=== PATIENT | female | born 1975 | race Hispanic/Latino ===

== ENCOUNTER 2017-08-29 22:17 | Emergency (ER) | payer MEDICAID ==
[2017-08-29 22:17] VITALS: BMI 21.5
[2017-08-29 22:21] VITALS: BP 136/91; PULSE 98; RESP 20; TEMP 97.6; O2SAT 96
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
== END 2017-08-30 00:31 | disposition home or self-care (01) ==
LOC: H.ER 22:17
DX: F41.9 Anxiety disorder, unspecified (principal); F20.9 Schizophrenia, unspecified; F32.9 Major depressive disorder, single episode, unspecified; J45.909 Unspecified asthma, uncomplicated

== ENCOUNTER 2017-11-17 07:40 | Emergency (ER) | payer MEDICAID ==
[2017-11-17 07:40] VITALS: BMI 21.5
[2017-11-17 07:56] VITALS: BP 124/86; PULSE 71; RESP 16; TEMP 98.1; O2SAT 100
[2017-11-17] MEDS ORDERED: Sodium Chloride 0.9% 1,000 ML IV STA (08:07)
[2017-11-17 08:28] LABS: SQUAMOUS EPITHIAL 1 /hpf (0-5); URINE BILIRUBIN NEGATIVE (NEGATIVE); URINE BLOOD MODERATE (NEGATIVE); URINE CLARITY SLIGHTY-CLOUDY (Clear); URINE COLOR YELLOW (YELLOW); URINE GLUCOSE (UA) NEG (Normal); URINE LEUKOCYTE ESTERASE NEG Leu/uL (Negative); URINE PROTEIN NEGATIVE (NEGATIVE); URINE UROBILINOGEN 0.2-1.0 mg/dL (0.2-1.0)
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
[2017-11-17 08:42] LABS: ALB/GLOB RATIO 1.1 (1.0-2.1); ALT/SGPT 30 U/L (9-52); AST/SGOT 25 U/L (14-36); BASO % 0.2 % (0.0-2.0); BLOOD UREA NITROGEN 14 mg/dl (7-17); CALCIUM 9.2 mg/dL (8.4-10.2); EOS # 0.2 K/uL (0.0-0.7); EOS % 2.2 % (0.0-4.0); GFR AFRICAN-AMERICAN > 60; GFR NON-AFRICAN AMERICAN > 60; LYMPH # 0.8 K/uL (1.0-4.3); LYMPH % 10.8 % (20.0-40.0); MEAN CELL VOLUME 92.1 fl (81.0-99.0); MEAN CORPUSCULAR HEMOGLOBIN 30.2 pg (27.0-31.0); MEAN CORPUSCULAR HGB CONC 32.8 g/dL (33.0-37.0); MEAN PLATELET VOLUME 12.2 fl (7.2-11.7); MONO # 0.9 K/uL (0.0-0.8); MONO % 12.9 % (0.0-10.0); NEUT # 5.4 K/uL (1.8-7.0); NEUT % 73.9 % (50.0-75.0); RBC 3.98 Mil/uL (3.80-5.20); RED CELL DISTRIBUTION WIDTH 14.5 % (11.5-14.5); WHITE BLOOD COUNT 7.3 K/uL (4.8-10.8)
--- NOTE | 2017-11-17 09:12 | CT ---
PROCEDURE: CT Abdomen and Pelvis without intravenous contrast HISTORY: acute severe left flank pain COMPARISON: 08/03/2014 TECHNIQUE: Without contrast. Contrast Dose: Radiation dose: Total exam DLP = Total exam DLP = 798 mGy-cm. This CT exam was performed using one or more of the following dose reduction techniques: Automated exposure control, adjustment of the mA and/or kV according to patient size, and/or use of iterative reconstruction technique. FINDINGS: LOWER THORAX: Posterior dependent atelectatic hypoventilatory changes noted LIVER: Unremarkable. No gross lesion or ductal dilatation. GALLBLADDER AND BILE DUCTS: Unremarkable. PANCREAS: Unremarkable. No gross lesion or ductal dilatation. SPLEEN: Unremarkable. ADRENALS: Unremarkable. No mass. KIDNEYS AND URETERS: Unremarkable. No hydronephrosis. The left ureter has some mild intermittent dilatation to it that is similar to the prior appearance no interval increasing caliber seen. No obstructing source identified. The segmental left ureteral "Fullness "are is not a continuous common of prominence. VASCULATURE: Bilateral hemipelvic calcifications left hemipelvic phleboliths -similar. Either right hemipelvic phleboliths and/or tiny dystrophic calcification relating to the right ovary noted- similar in appearance no distal ureteral calculi noted. No aortic aneurysm. BOWEL: Moderate stool retention No obstruction. No gross mural thickening. APPENDIX: Unremarkable. Normal appendix. PERITONEUM: Unremarkable. No free fluid. No free air. LYMPH NODES: Unremarkable. No enlarged lymph nodes. BLADDER: Unremarkable. REPRODUCTIVE: The right ovary simulates a prominent follicular cyst formation. This appearance however is similar dating back to 2013. The left ovary is higher in position appears unremarkable. Pelvic ultrasound more sensitive for CASE MANAGER SPECIALIST assessment. BONES: No acute fracture. L5-S1 disc space narrowing with endplate spondylosis. Thoraco lumbar level spondylosis also noted. OTHER FINDINGS: None. IMPRESSION: No urolithiasis seen. No hydronephrosis. No persisting hydroureter. The left ureter is segmentally minimally full but this appearance is not continuous and not changed since 2013. No distal obstructing calculus suggested Nonspecific a CASE MANAGER SPECIALIST findings as above. Consider pelvic ultrasound
== END 2017-11-17 10:47 | disposition home or self-care (01) ==
LOC: H.ER 07:40
DX: M54.9 Dorsalgia, unspecified (principal); Z86.59 Personal history of other mental and behavioral disorders; J45.909 Unspecified asthma, uncomplicated
CPT/HCPCS: 74176; 80053; 81003; 81025; 85025; 96361; 96374; 96375; 99283; J1885; J2765; J7040

== ENCOUNTER 2017-11-17 21:36 | Emergency (ER) | payer MEDICAID ==
[2017-11-17 21:36] VITALS: BMI 21.5
[2017-11-17 21:45] VITALS: BP 118/72; O2SAT 100
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
[2017-11-17 23:22] VITALS: TEMP 98.8
[2017-11-17 23:23] VITALS: PULSE 98
[2017-11-17 23:28] LABS: B-TYPE NATRIURETIC PEPTIDE 56.1 pg/ml (0-450)
[2017-11-17 23:32] VITALS: RESP 18
--- NOTE | 2017-11-18 09:23 | RAD ---
HISTORY: sob COMPARISON: Comparison chest dated 07/03/2013 TECHNIQUE: Chest PA and lateral FINDINGS: LUNGS: Minor bibasilar atelectasis. PLEURA: No significant pleural effusion identified. No pneumothorax apparent. CARDIOVASCULAR: Normal. OSSEOUS STRUCTURES: No significant abnormalities. VISUALIZED UPPER ABDOMEN: Normal. OTHER FINDINGS: None. IMPRESSION: Minor bibasilar atelectasis.
== END 2017-11-17 23:42 | disposition home or self-care (01) ==
LOC: H.ER 21:36
DX: B34.9 Viral infection, unspecified (principal); F41.9 Anxiety disorder, unspecified; J44.9 Chronic obstructive pulmonary disease, unspecified; Z86.59 Personal history of other mental and behavioral disorders
CPT/HCPCS: 71046; 81025; 83880; 84484; 87070; 87430; 87804; 96374; 99284; J2930

== ENCOUNTER 2018-09-16 13:10 | Inpatient (IN) | payer MEDICAID ==
[2018-09-16 13:11] VITALS: BMI 21.5
[2018-09-16 13:17] VITALS: O2SAT 98
--- NOTE | 2018-09-16 14:29 | ED PDOC ---
HPI: Psych/Substance Abuse Time Seen by Provider: 09/16/18 13:35 Chief Complaint (Nursing): Psychiatric Evaluation Chief Complaint (Provider): Psychiatric Evaluation History Per: Patient History/Exam Limitations: no limitations Onset/Duration Of Symptoms: Hrs Current Symptoms Are (Timing): Still Present Associated Symptoms: Depression. denies: Suicidal Thoughts, Suicidal Plan Additional Complaint(s): Jyothi Gomez is a 43 year old female with a past medical history of schizophrenia, depression, and asthma who is presenting to the ED for psyc hiatric evaluation after having a panic attack s/p argument with today. Patient states that she recently noted that her has been talking on the phone with another female and thinks he is cheating on her. She admits that she has been feeling depressed and is crying frequently over the past few days but is unsure why. Patient also states that she has not taken any medications for the past 3 months as she ran out and has not seen a psychiatrist. She currently denies any suicidal/homicidal ideation as well as auditory or visual hallucinations. Patient admits to a history of suicide attempts several years ago when she tried to hang herself with sheets. She states that at the time she was hospitalized for 6 months at [facility] in [place]. At the moment patient is strongly denying any suicidal ideation or plan. Patients only medical complaint is nasal congestion and denies any fevers, chills, or sore throat. PMD: none provided Past Medical History Reviewed: Historical Data, Nursing Documentation, Vital Signs Vital Signs: Last Vital Signs Temp 98.0 F 09/16/18 13:16 Pulse 117 H 09/16/18 13:16 Resp 20 09/16/18 13:16 BP 143/94 H 09/16/18 13:16 Pulse Ox 98 09/16/18 13:16 - Medical History PMH: Anxiety, Asthma, Back Problems (chronic - patient takes percocets from Dr. Encarnacion ), Depression Denies: Diabetes, Hepatitis, HIV, HTN, Seizures, Sexually Transmitted Disease - Surgical History Surgical History: Hernia Repair - Family History Family History: States: Unknown Family Hx - Social History Current smoker - smoking cessation education provided: No Alcohol: None Drugs: Denies - Immunization History Hx Tetanus Toxoid Vaccination: No Hx Influenza Vaccination: Yes Hx Pneumococcal Vaccination: No - Home Medications Home Medications: Ambulatory Orders Medication Instructions Recorded Acetaminophen/Oxycodone Hydr 1 tab PO Q6H PRN 02/17/15 [Percocet 10/325 mg Tab] Albuterol Sulfate [Ventolin Hfa] 2 puff IH Q6 PRN 09/16/18 Alprazolam [Xanax] 2 mg PO Q8 09/16/18 Ergocalciferol (Vitamin D2) 50,000 unit PO QWK 09/16/18 [Vitamin D2] Montelukast [Singulair] 10 mg PO HS 09/16/18 Omeprazole 20 mg PO DAILY 09/16/18 RX: cloNIDine [Catapres] 0.1 mg PO Q12 09/16/18 RX: predniSONE [predniSONE Tab] 10 mg PO DAILY 09/16/18 Simvastatin 10 mg PO HS 09/16/18 Zolpidem [Ambien] 10 mg PO HS 09/16/18 - Allergies Allergies/Adverse Reactions: Allergies Allergy/AdvReac Type Severity Reaction Status Date / Time aspirin Allergy ITCHING Verified 09/16/18 19:16 Review of Systems ROS Statement: Except As Marked, All Systems Reviewed And Found Negative Constitutional: Negative for: Fever, Chills ENT: Positive for: Nose Congestion. Negative for: Throat Pain Psych: Positive for: Depression. Negative for: Suicidal ideation, Other (no homicidal ideation, auditory or visual hallucinations ) Physical Exam - Reviewed Nursing Documentation Reviewed: Yes Vital Signs Reviewed: Yes - Physical Exam Appears: Positive for: Non-toxic, No Acute Distress (but tearful and crying during exam ) Head Exam: Positive for: ATRAUMATIC, NORMAL INSPECTION, NORMOCEPHALIC Skin: Positive for: Normal Color, Warm, DRY Eye Exam: Positive for: Normal appearance, EOMI, PERRL, Conjunctival injection (bilateral) ENT: Positive for: Nasal Congestion Neck: Positive for: Normal, Painless ROM Cardiovascular/Chest: Positive for: Regular Rate, Rhythm. Negative for: Murmur Respiratory: Positive for: Normal Breath Sounds. Negative for: Respiratory Distress Gastrointestinal/Abdominal: Positive for: Normal Exam, Soft. Negative for: Tenderness Back: Positive for: Normal Inspection Extremity: Positive for: Normal ROM. Negative for: Deformity, Swelling Neurologic/Psych: Positive for: Alert, Oriented, Mood/Affect (flat affect). Negative for: Motor/Sensory Deficits - Laboratory Results Result Diagrams: 09/16/18 14:30 09/16/18 14:30 - ECG O2 Sat by Pulse Oximetry: 98 (RA) Pulse Ox Interpretation: Normal Medical Decision Making Medical Decision Making: Time: 14:18 Plan: --EKG --CMP --Drug Screen --Crisis Evaluation --ED Urine --CBC --Chest X-ray --Urinalysis EKG: sinus rhythm at 85 bpm. nonspecific T waves in anterior leads 15:50 Chest x-ray read by provider unremarkable no acute pulmonary process. urine drug screen positive for cocaine. labs unremarkable. Patient is medically clear for psych admission. Scribe Attestation: Documented by, Gwen Payton acting as a scribe for Amna Park PA-C. Provider Scribe Attestation: All medical record entries made by the Scribe were at my direction and personally dictated by me. I have reviewed the chart and agree that the record accurately reflects my personal performance of the history, physical exam, m edical decision making, and the department course for this patient. I have also personally directed, reviewed, and agree with the discharge instructions and disposition. Disposition - Clinical Impression Clinical Impression: Depression - Patient ED Disposition Is Patient to be Admitted: Yes Discussed With : Drea Burciaga - Disposition Disposition: Transfer of Care Disposition Time: 15:55 Condition: FAIR
[2018-09-16 15:16] LABS: BASO % 0.6 % (0.0-2.0); EOS # 0.2 K/uL (0.0-0.7); EOS % 3.3 % (0.0-4.0); HEMOGLOBIN 11.2 g/dL (12.0-16.0); LYMPH # 1.7 K/uL (1.0-4.3); LYMPH % 29.4 % (20.0-40.0); MEAN CELL VOLUME 91.7 fl (81.0-99.0); MEAN CORPUSCULAR HEMOGLOBIN 30.4 pg (27.0-31.0); MEAN CORPUSCULAR HGB CONC 33.2 g/dL (33.0-37.0); MEAN PLATELET VOLUME 11.7 fl (7.2-11.7); MONO # 0.6 K/uL (0.0-0.8); MONO % 10.1 % (0.0-10.0); NEUT # 3.3 K/uL (1.8-7.0); NEUT % 56.6 % (50.0-75.0); RBC 3.68 Mil/uL (3.80-5.20); RED CELL DISTRIBUTION WIDTH 14.5 % (11.5-14.5); WHITE BLOOD COUNT 5.8 K/uL (4.8-10.8)
[2018-09-16 15:23] LABS: ALB/GLOB RATIO 1.1 (1.0-2.1); ALBUMIN 3.9 g/dL (3.5-5.0); ALT/SGPT 26 U/L (9-52); AST/SGOT 17 U/L (14-36); BLOOD UREA NITROGEN 9 mg/dl (7-17); CALCIUM 8.8 mg/dL (8.4-10.2); GFR NON-AFRICAN AMERICAN 60
[2018-09-16 15:33] LABS: BARBITURATES, UR NEGATIVE (NEGATIVE); BENZODIAZEPINES, UR NEGATIVE (NEGATIVE); OPIATES, UR NEGATIVE (NEGATIVE); PHENCYCLIDINE, UR NEGATIVE (NEGATIVE)
[2018-09-16 15:41] LABS: SQUAMOUS EPITHIAL 8 /hpf (0-5); URINE BACTERIA OCC (<OCC); URINE BILIRUBIN NEGATIVE (NEGATIVE); URINE BLOOD MODERATE (NEGATIVE); URINE CLARITY SLIGHTY-CLOUDY (Clear); URINE COLOR YELLOW (YELLOW); URINE GLUCOSE (UA) NEG (NEGATIVE); URINE LEUKOCYTE ESTERASE NEG Leu/uL (Negative); URINE PROTEIN NEGATIVE (NEGATIVE); URINE UROBILINOGEN 0.2-1.0 mg/dL (0.2-1.0)
--- NOTE | 2018-09-16 15:55 | RAD ---
Date of service: 09/16/2018 HISTORY: baseline COMPARISON: Chest radiographs 11/17/2017. FINDINGS: LUNGS: Overall inspiratory volume appears somewhat diminished in the interval. No acute infiltrate bilaterally. PLEURA: No significant pleural effusion identified, no pneumothorax apparent. CARDIOVASCULAR: No aortic atherosclerotic calcification present. Normal cardiac size. No pulmonary vascular congestion. OSSEOUS STRUCTURES: No significant abnormalities. VISUALIZED UPPER ABDOMEN: Normal. OTHER FINDINGS: None. IMPRESSION: No acute infiltrate, pleural effusion or pulmonary vascular congestion bilaterally. No pneumothorax. Inspiratory volume appears diminished in the interval somewhat.
--- NOTE | 2018-09-16 17:25 | PCM.BM ---
Treatment Plan Problems - Problems identified on initial assessmt Anxiety Date Initiated: 09/16/18 Time Initiated: 17:23 Assessment reference: NA Status: Active Feelings of Worthlessness Date Initiated: 09/16/18 Time Initiated: 17:24 Assessment reference: NA Status: Active Nutrition More than Body Requirements Date Initiated: 09/16/18 Time Initiated: 17:26 Assessment reference: NA Status: Active Altered Sleep Patterns Date Initiated: 09/16/18 Time Initiated: 17:27 Assessment reference: NA Status: Active Treatment assets and liabiliti Patient Assests: cooperative, ADL independent Patient Liabilities: relationship conflicts - Milieu Protocol Maintain good personal hygiene: daily Encourage regular showers, daily Remind patient to perform daily oral care, daily Assist patient to perform ADL's Maintain personal safety: every shift Educate patient to report safety concerns to staff, every shift Monitor environment for contraband/sharps Medication safety: Monitor for expected outcome, potential side effects: every shift, Assess barriers to learning: every shift, Assess readiness for medication education: every shift
[2018-09-16] MEDS ORDERED: Alum-Mag Hydrox-Simethicone Susp (30 mL) PO PRN (17:48)
[2018-09-16] MEDS ORDERED: Magnesium Hydroxide Susp 30 ml UD PO PRN (17:48)
[2018-09-16] MEDS ORDERED: DiphenhydrAMINE 50 mg/ml Inj IM PRN (18:10)
--- NOTE | 2018-09-16 18:32 | CARD ---
APPROVED REPORT Date of service: 09/16/2018 EKG Measurement Heart [id number] ID [id number] <Conclusion> Normal sinus rhythm Possible Left atrial enlargement Borderline ECG
[2018-09-17 10:37] LABS: BASO % 0.5 % (0.0-2.0); EOS # 0.3 K/uL (0.0-0.7); EOS % 4.7 % (0.0-4.0); HEMOGLOBIN 11.4 g/dL (12.0-16.0); LYMPH # 1.5 K/uL (1.0-4.3); LYMPH % 21.8 % (20.0-40.0); MEAN CELL VOLUME 93.2 fl (81.0-99.0); MEAN CORPUSCULAR HEMOGLOBIN 30.6 pg (27.0-31.0); MEAN CORPUSCULAR HGB CONC 32.8 g/dL (33.0-37.0); MEAN PLATELET VOLUME 11.4 fl (7.2-11.7); MONO # 0.6 K/uL (0.0-0.8); MONO % 8.6 % (0.0-10.0); NEUT # 4.4 K/uL (1.8-7.0); NEUT % 64.4 % (50.0-75.0); RBC 3.72 Mil/uL (3.80-5.20); RED CELL DISTRIBUTION WIDTH 14.7 % (11.5-14.5); WHITE BLOOD COUNT 6.8 K/uL (4.8-10.8)
[2018-09-17 10:55] LABS: ALB/GLOB RATIO 1.1 (1.0-2.1); ALBUMIN 3.7 g/dL (3.5-5.0); CALCIUM 9.1 mg/dL (8.4-10.2)
[2018-09-17 11:07] LABS: T4 7.79 ug/dl (5.5-11.0)
--- NOTE | 2018-09-17 11:42 | PCM.PSYCH ---
Initial Psychiatric Evaluation - Initial Psychiatric Evaluation Type of Admission: Voluntary Legal Status: Capacity Chief Complaint (in patient's own words): I was upset I did not want to continue Patient's Reaction to Hospitalization: pt requested help History of Present Illness and Precipitating Events: pt with previous psychiatric diagnosis of schizophrenia and anxiety disorder, non compliant with medications or follow up, brought to ER for panic attacks and passive suicidal idetion, pt depressed and anxious in the context of realizing that her may be having an affair, started experiencing panic attacks, constantly crying with difficulty to breath, on the unit presenting with depressed and anxious mood and affect, passive suicidal ideation without active plan denied homicidal ideation, denied perceptual disturbances urine toxicology positive for cocaine Current Medications: Active Medications Generic Name Dose Route Start Last Admin Trade Name Freq PRN Reason Stop Dose Admin Acetaminophen 650 mg 09/16/18 17:48 09/16/18 19:10 Tylenol 325mg Tab PO 650 mg Q4 PRN Administration pain (4-7) Al Hydrox/Mg Hydrox/Simethicone 30 ml 09/16/18 17:48 Maalox Plus 30 Ml PO Q4 PRN Dyspepsia Diphenhydramine HCl 50 mg 09/16/18 17:57 Benadryl PO HS PRN Sleep Diphenhydramine HCl 50 mg 09/16/18 18:00 Benadryl PO Q6 PRN Dystonic Reaction /EPS Diphenhydramine HCl 50 mg 09/16/18 18:10 Benadryl IM Q6 PRN EPS/ DYSTONIC Reaction Haloperidol 5 mg 09/16/18 17:48 Haldol PO Q4 PRN Agitation Haloperidol Lactate 5 mg 09/16/18 17:48 Haldol IM Q4 PRN Agitation, Unable to Take PO Lorazepam 2 mg 09/16/18 17:48 Ativan IM Q4 PRN Anxiety/Agitation,Unable PO Lorazepam 1 mg 09/16/18 18:08 Ativan PO Q8 PRN Anxiety Magnesium Hydroxide 30 ml 09/16/18 17:48 Milk Of Magnesia PO HS PRN Constipation Past Psychiatric History - Past Psychiatric History Explanation of prior treatment: pt non compliant History of ETOH/Drug Use: cocaine Pertinent Medical Hx (Current Medical&Sleep Prob, Allergies): Allergies Allergy/AdvReac Type Severity Reaction Status Date / Time aspirin Allergy ITCHING Verified 02/01/19 19:16 Acetaminophen/Oxycodone Hydr [Percocet 10/325 mg Tab] 1 tab PO Q6H PRN 02/17/15 Albuterol Sulfate [Ventolin Hfa] 2 puff IH Q6 PRN 09/16/18 Alprazolam [Xanax] 2 mg PO Q8 09/16/18 Ergocalciferol (Vitamin D2) [Vitamin D2] 50,000 unit PO QWK 09/16/18 Montelukast [Singulair] 10 mg PO HS 09/16/18 Omeprazole 20 mg PO DAILY 09/16/18 Simvastatin 10 mg PO HS 09/16/18 Zolpidem [Ambien] 10 mg PO HS 09/16/18 cloNIDine [Catapres] 0.1 mg PO Q12 09/16/18 predniSONE [predniSONE Tab] 10 mg PO DAILY 09/16/18 Mental Status Examination - Personal Presentation Personal Presentation: Looks stated age - Affect Affect: Constricted, Depressed - Motor Activity Motor Activity: Psychomotor Agitation - Reliability in Providing Information Reliability in Providing Information: Fair - Speech Speech: Relevant - Mood Mood: Depressed, Anxious - Formal Thought Process Formal Thought Process: Circumstantial - Cognitive Functions Orientation: Person, Place, Situation Sensorium: Alert Abstract Thinking: [place] Judgement: Imparied, as evidence by: Poor judgement, Imparied, as evidence by: Lack of insight into illness - Risk Risk: Diminished functioning - Strength & Assets Inventory Strength & Assets Inventory: Life experience - Limitations Additional comments: non compliance DSM 5 DX - DSM 5 DSM 5 Diagnosis: generalized anxiety disorder panic disorder hx of schizophrenia cocaine abuse - Recommended/Plan of Treatment Treatment Recommendations and Plan of Treatment: start abilify 5mgdaily paxil 10mg daily motivational, group and supportive therapy
--- NOTE | 2018-09-18 10:03 | PCM.PYCHPN ---
Psychiatric Progress Note - Psychiatric Progress Note Patient seen today, length of contact: Pt evaluated, case discussed w/ team, chart reviewed Patient Chief Complaint: "I'm feeling better." Problems Identified/Issues Discussed: Patient reports that she feels less anxious and less depressed. She denies acute AH/VH/SI/HI. She reports that her symptoms worsened prior to admission because she was not compliance with treatment or medications. Psychoeducation provided on the importance of therapy and medications. Medication Change: No Medical Record Reviewed: Yes Consults ordered or reviewed: Medicine consult ordered Mental Status Examination - Cognitive Function Orientation: Person, Place, Situation, Time Memory: Intact Attention: WNL Concentration: WNL Association: WNL Fund of Knowledge: [facility] Decription of patient's judgement and insights: Fair I/J - Mood Mood: Depressed, Anxious - Affect Affect: Constricted - Speech Speech: Soft - Formal Thought Process Formal Thought Process: No Impairment Psychotic Thoughts and Behaviors: Denies AH/VH/paranoia/delusions - Suicidal Ideation Suicidal Ideation: No - Homicidal Ideation Homicidal Ideation: No Goal/Treatment Plan - Goal/Treatment Plan Need for Continued Stay: Discharge may exacerbated symptoms Progress Toward Problem(s) and Goals/Treatment Plan: -Continue current medications -Individual and group therapy -Psychoeducation -Disposition planning
--- NOTE | 2018-09-19 14:13 | PCM.PYCHPN ---
Psychiatric Progress Note - Psychiatric Progress Note Patient seen today, length of contact: Pt evaluated, case discussed w/ team, chart reviewed Patient Chief Complaint: pt evaluated with treatment team, reported feeling less anxious, and thought process more clear with starting abilify, denied perceptual disturbances, non reported side effects of medications, discussed increasing paxil, motivational therapy provided in reference to cocaine abuse Medical Problems: pt non compliant DSM 5 Symptoms Update: panic disorder depression cocaine abuse Medication Change: No Medical Record Reviewed: Yes Mental Status Examination - Cognitive Function Orientation: Person, Place, Situation, Time Memory: Intact Attention: WNL Concentration: WNL Association: WNL Fund of Knowledge: WN - Mood Mood: Depressed, Anxious - Affect Affect: Constricted - Speech Speech: Soft - Formal Thought Process Formal Thought Process: No Impairment - Suicidal Ideation Suicidal Ideation: No - Homicidal Ideation Homicidal Ideation: No Goal/Treatment Plan - Goal/Treatment Plan Need for Continued Stay: Discharge may exacerbated symptoms Progress Toward Problem(s) and Goals/Treatment Plan: abilify 5mgdaily increase paxil 20mg daily motivational, group and supportive therapy
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
[2018-09-20 09:12] VITALS: RESP 19
--- NOTE | 2018-09-20 12:41 | PCM.PYCHPN ---
Psychiatric Progress Note - Psychiatric Progress Note Patient seen today, length of contact: Pt evaluated, case discussed w/ team, chart reviewed Patient Chief Complaint: I feel better with medications Problems Identified/Issues Discussed: pt evaluated, presenting with brighter affect, reported better mood, feeling less anxious, no side effects of medications, CBT provided ,pt able to verbalize coping skills with stress, denied any current thoughts of self harm denied perceptual disturbances Medical Problems: pt non compliant DSM 5 Symptoms Update: depression generalized anxiety disorder Medication Change: No Medical Record Reviewed: Yes Mental Status Examination - Cognitive Function Orientation: Person, Place, Situation, Time Memory: Intact Attention: WNL Concentration: WNL Association: WNL Fund of Knowledge: WNL - Mood Mood: Depressed, Anxious - Affect Affect: Constricted - Speech Speech: Soft - Formal Thought Process Formal Thought Process: No Impairment - Suicidal Ideation Suicidal Ideation: No - Homicidal Ideation Homicidal Ideation: No Goal/Treatment Plan - Goal/Treatment Plan Need for Continued Stay: Discharge may exacerbated symptoms Progress Toward Problem(s) and Goals/Treatment Plan: abilify 5mgdaily paxil 20mg qhs motivational, group and supportive therapy
[2018-09-21 09:20] VITALS: BP 143/92; PULSE 79; TEMP 97.5
--- NOTE | 2018-09-21 12:58 | PCM.PYCHDC ---
Mental Status Examination - Mental Status Examination Orientation: Person, Place, Situation, Time Memory: Intact Mood: Neutral Affect: Broad Speech: Appropriate Attention: WNL Concentration: WNL Association: WNL Fund of Knowledge: WNL Formal Thought Process: Circumstantial Description of patient's judgement and insight: partial insight , fair judgment Psychotic Thoughts and Behaviors: pt denied perceptual disturbances on discharge, non elicited Suicidal Ideation: No Current Homicidal Ideation?: No Discharge Summary - Discharge Note Reason for Hospitalization: pt with previous psychiatric diagnosis of schizophrenia and anxiety disorder, non compliant with medications or follow up, brought to ER for panic attacks and passive suicidal idetion, pt depressed and anxious in the context of realizing that her may be having an affair, started experiencing panic attacks, constantly crying with difficulty to breath, on the unit presenting with depressed and anxious mood and affect, passive suicidal ideation without active plan denied homicidal ideation, denied perceptual disturbances urine toxicology positive for cocaine Consultations:: List each consultation separately and include: 1. Reason for request. 2. Findings. 3. Follow-up Summary of Hospital Course include:: 1. Description of specific treatment plan utilized for patients during their course of treatmen. 2. Summarize the time- course for resolution of acute symptoms and/or regressed behaviors. 3. Describe issues identified and worked on during hospitalization. 4. Describe medication utilized. 5. Describe medical problems identified and treated. 6. Reassessment of suicide risk Summary of Hospital Course: pt on admission presented with increased anxiety, depressed mood and affect pt was placed on abilify 5mg and paxil 20mg, she was compliant with medications, no reported side effects, motivational therapy was provided in reference to cocaine use on discharge pt mental status was stable, denied any current suicidal or homicidal ideation, denied perceptual disturbances - Final Diagnosis (DSM 5) Condition upon Discharge: FAIR DSM 5: major depression generalized anxiety disorder cocaine abuse Disposition: HOME/ ROUTINE Follow-up Treatment Plan: abilify 5mgdaily paxil 20mg qhs motivational, group and supportive therapy Prescriptions/Medication Reconciliation: ARIPiprazole [Abilify] 5 mg PO DAILY 30 Days #30 tab PARoxetine [Paxil] 20 mg PO HS 30 Days #30 tab - Antipsychotic Medications Pt discharged on 2 or more routine antipsychotic medications: No
== END 2018-09-21 13:37 | disposition home or self-care (01) | DRG 426 ==
LOC: H.ER 13:10 → H.ERHOLD 15:15 → H.PSYCH 16:47
PROVIDERS: ADMIT Psychiatry & Neurology Psychiatry; ATTEND Psychiatry & Neurology Psychiatry
PROC: GZ51ZZZ Individual Psychotherapy, Behavioral (ICD-10-PCS; 2018-09-17)
PROC: GZ56ZZZ Individual Psychotherapy, Supportive (ICD-10-PCS; 2018-09-17)
PROC: GZHZZZZ Group Psychotherapy (ICD-10-PCS; principal; 2018-09-19)
DX: F32.9 Major depressive disorder, single episode, unspecified (principal); F14.10 Cocaine abuse, uncomplicated; F41.0 Panic disorder [episodic paroxysmal anxiety]; F41.1 Generalized anxiety disorder; J45.909 Unspecified asthma, uncomplicated; Z79.899 Other long term (current) drug therapy; Z91.14 Patient's other noncompliance with medication regimen; Z91.19 Patient's noncompliance with other medical treatment and regimen; Z91.5 Personal history of self-harm; R45.851 Suicidal ideations; M54.9 Dorsalgia, unspecified; F20.9 Schizophrenia, unspecified